=== PATIENT | female | born 1935 | race Hispanic/Latino ===

== ENCOUNTER 2018-12-10 11:15 | Inpatient (IN) | payer MEDICARE ==
[2018-12-10] MEDS ORDERED: Albuterol-Ipratrop 3 mg / 0.5 (3 ml) UD IH STA (11:35)
--- NOTE | 2018-12-10 11:46 | ED PDOC ---
Arrival/HPI - General Chief Complaint: Shortness Of Breath Time Seen by Provider: 12/10/18 11:16 Historian: Patient - History of Present Illness Narrative History of Present Illness (Text): 12/10/18 11:46 83 year old female, with past medical history of hypertension, chronic smoker, presents to the ED for evaluation of shortness of breath and non-productive cough since 2 weeks. Patient reports visiting Dr. Vargas with the presented symptoms and was subsequently referred to the ED for evaluation. dypnea with exertion. Patient denies any other associated somatic complaints. Patient denies any fevers, chills, headache, dizziness, chest pain, abdominal pain, nausea, vomiting, diarrhea, back pain, neck pain, or any other complaints. Patient admits to smoking cigarettes daily. PMD: Dr. Aleksandr Vargas 12/10/18 15:55 12/10/18 15:56 Time/Duration: > week Symptom Onset: Gradual Symptom Course: Unchanged Activities at Onset: Light Context: Home Past Medical History - Provider Review Nursing Documentation Reviewed: Yes - Infectious Disease Hx of Infectious Diseases: None - Reproductive Menopause: Yes - Cardiac Hx Hypertension: Yes - Pulmonary Hx Respiratory Disorders: No - Neurological Hx Neurological Disorder: No - HEENT Hx HEENT Disorder: No - Psychiatric Hx Substance Use: No - Anesthesia Hx Anesthesia: No Family/Social History - Physician Review Nursing Documentation Reviewed: Yes Family/Social History: No Known Family HX Smoking Status: Heavy Smoker > 10 Cigarettes Daily Hx Alcohol Use: No Hx Substance Use: No Allergies/Home Meds Allergies/Adverse Reactions: Allergies No Known Allergies Allergy (Verified 12/10/18 11:29) Home Medications: Home Meds Medication Instructions Recorded Confirmed Aspirin [Ecotrin] 81 mg PO DAILY 12/10/18 12/10/18 Atorvastatin [Lipitor] 40 mg PO DAILY 12/10/18 12/10/18 Carvedilol [Coreg] 12.5 mg PO DAILY 12/10/18 12/10/18 Clopidogrel [Plavix] 75 mg PO DAILY 12/10/18 12/10/18 Gabapentin [Neurontin] 300 mg PO 12/10/18 Meloxicam [Mobic] 15 mg PO DAILY 12/10/18 12/10/18 Telmisartan [Micardis] 80 mg PO DAILY 12/10/18 12/10/18 amLODIPine [Norvasc] 10 mg PO DAILY 12/10/18 12/10/18 Review of Systems - Physician Review All systems were reviewed & negative as marked: Yes - Review of Systems Constitutional: absent: Fevers Respiratory: SOB, Cough Cardiovascular: absent: Chest Pain, VARGAS Gastrointestinal: absent: Abdominal Pain, Diarrhea, Nausea, Vomiting Genitourinary Female: absent: Dysuria Musculoskeletal: absent: Back Pain, Neck Pain Skin: absent: Rash Neurological: absent: Headache, Dizziness Psychiatric: absent: Anxiety Physical Exam Vital Signs Reviewed: Yes Vital Signs Temp Pulse Resp BP Pulse Ox 12/10/18 11:24 98 F 78 20 133/74 92 L Temperature: Afebrile Blood Pressure: Normal Pulse: Regular Respiratory Rate: Normal Appearance: Positive for: Well-Appearing, Non-Toxic, Comfortable Pain Distress: None Mental Status: Positive for: Alert and Oriented X 3 - Systems Exam Head: Present: Atraumatic, Normocephalic Pupils: Present: PERRL Extroacular Muscles: Present: EOMI Conjunctiva: Present: Normal Mouth: Present: Moist Mucous Membranes Neck: Present: Normal Range of Motion Respiratory/Chest: Present: Wheezes (scatttered wheezing), Decreased Breath Sounds. No: Respiratory Distress, Accessory Muscle Use Cardiovascular: Present: Regular Rate and Rhythm, Normal S1, S2. No: Murmurs Abdomen: No: Tenderness, Distention, Peritoneal Signs Back: Present: Normal Inspection Upper Extremity: Present: Normal Inspection. No: Cyanosis, Edema Lower Extremity: Present: Normal Inspection. No: Edema Neurological: Present: GCS=15, CN II-XII Intact, Speech Normal Skin: Present: Warm, Dry, Normal Color. No: Rashes Psychiatric: Present: Alert, Oriented x 3, Normal Insight, Normal Concentration Medical Decision Making ED Course and Treatment: 12/10/18 11:34 Impression: 83 year old female presents to the ED for evaluation of shortness of breath and cough. ro pna chf pe copd. exam mild wheezing, fine rale at bases Plan: -- EKG -- Labs -- CXR -- Duoneb -- Solumedrol -- Influenza -- Urinalysis -- Reassess and disposition Prior Visits: Notes and results from previous visits were reviewed. Progress Notes: EKG reviewed, shows NSR @ 72 bpm, non-specific ST/T wave changes. Poor tracing secondary to artifacts. 12/10/18 14:38 CXR reviewed by radiologist, shows no active disease. CTA negative, shows no PE. 12/10/18 15:55 case discussed with pmd requests admission cards eval. - RAD Interpretation Radiology Orders: 12/10/18 11:34 CHEST PORTABLE [RAD] Stat - Medication Orders Current Medication Orders: Discontinued Medications Albuterol/Ipratropium (Duoneb 3 Mg/0.5 Mg (3 Ml) Ud) 3 ml IH STAT STA Stop: 12/10/18 11:36 Methylprednisolone (Solu-Medrol) 125 mg IVP STAT STA Stop: 12/10/18 11:36 - Scribe Statement The provider has reviewed the documentation as recorded by the Scribe Nick Ronquillo. All medical record entries made by the Scribe were at my direction and pers onally dictated by me. I have reviewed the chart and agree that the record accurately reflects my personal performance of the history, physical exam, medical decision making, and the department course for this patient. I have also personally directed, reviewed, and agree with the discharge instructions and disposition. Disposition/Present on Arrival - Present on Arrival Any Indicators Present on Arrival: No History of DVT/PE: No History of Uncontrolled Diabetes: No Urinary Catheter: No History of Decub. Ulcer: No History Surgical Site Infection Following: None - Disposition Have Diagnosis and Disposition been Completed?: Yes Diagnosis: CHF (congestive heart failure) Disposition: HOSPITALIZED Disposition Time: 15:00 Condition: STABLE
[2018-12-10 12:04] LABS: BASO # 0.02 K/mm3 (0.0-2.0); BASO % 0.3 % (0.0-3.0); EOS # 0.3 (0.0-0.7); EOS % 5.2 % (1.5-5.0); HEMOGLOBIN 14.5 g/dL (12.0-16.0); LYMPH % 33.4 % (22.0-35.0); MEAN CELL VOLUME 93.5 fl (80.0-105.0); MEAN CORPUSCULAR HEMOGLOBIN 31.2 pg (25.0-35.0); MEAN CORPUSCULAR HGB CONC 33.3 g/dl (31.0-37.0); MEAN PLATELET VOLUME 9.9 fl (7.0-11.0); MONO # 0.4 (0.1-0.6); MONO % 6.7 % (1.0-6.0); RBC 4.65 10^6/uL (3.5-6.1); RED CELL DISTRIBUTION WIDTH 12.8 % (11.5-14.5)
[2018-12-10 12:13] LABS: ALB/GLOB RATIO 1.4 (1.1-1.8); ALBUMIN 4.2 g/dL (3.0-4.8); ALT/SGPT 8 U/L (7-56); AST/SGOT 22 U/L (14-36); BLOOD UREA NITROGEN 26 mg/dL (7-21); CALCIUM 9.4 mg/dL (8.4-10.5); GFR NON-AFRICAN AMERICAN > 60; PARTIAL THROMBOPLASTIN TIME 30.7 Seconds (26.9-38.3); PROTHROMBIN TIME 11.3 SECONDS (9.4-12.5)
[2018-12-10 12:24] LABS: B-TYPE NATRIURETIC PEPTIDE 655 pg/mL (0-450); TROPONIN I < 0.01 ng/mL
[2018-12-10] MEDS ORDERED: Iohexol 350 MG/100 ML VIAL ONE (13:02)
[2018-12-10 13:03] LABS: PH,URINE 5.5 (4.7-8.0); URINE BILIRUBIN NEGATIVE (NEGATIVE); URINE BLOOD NEGATIVE (NEGATIVE); URINE GLUCOSE (UA) NEGATIVE (NEGATIVE); URINE LEUKOCYTE ESTERASE NEGATIVE Leu/uL (NEGATIVE); URINE PROTEIN NEGATIVE mg/dL (<30 mg/dL); URINE UROBILINOGEN 0.2 E.U./dL (<1 E.U./dL)
[2018-12-10 13:04] LABS: URINE APPEARANCE CLEAR (CLEAR); URINE COLOR YELLOW (YELLOW)
--- NOTE | 2018-12-10 14:11 | CT ---
Date of service: 12/10/2018 PROCEDURE: CT Chest with contrast (Pulmonary Angiogram) HISTORY: sob elevated dimer COMPARISON: None available. TECHNIQUE: Axial computed tomography images were obtained of the chest in the pulmonary arterial phase of enhancement. Coronal and sagittal reformatted images were created and reviewed. Intravenous contrast dose: 100 cc of Omni 350 Radiation dose: Total exam DLP = 265.94 mGy-cm. This CT exam was performed using one or more of the following dose reduction techniques: Automated exposure control, adjustment of the mA and/or kV according to patient size, and/or use of iterative reconstruction technique. FINDINGS: PULMONARY ARTERIES: Unremarkable. No pulmonary embolism. AORTA: No acute findings. No thoracic aortic aneurysm. Aortic and coronary artery calcification LUNGS: Unremarkable. No nodule, mass or pulmonary consolidation. PLEURAL SPACES: Unremarkable. No effusion or pneumothorax. HEART: Unremarkable. No cardiomegaly. No significant pericardial effusion. LYMPH NODES: No lymphadenopathy. BONES, CHEST WALL: Scoliosis. No vertebral compression fractures OTHER FINDINGS: Unremarkable. IMPRESSION: Unremarkable CT pulmonary angiogram. No pulmonary embolus.
--- NOTE | 2018-12-10 14:33 | RAD ---
Date of service: 12/10/2018 HISTORY: sob COMPARISON: No prior. FINDINGS: LUNGS: No active pulmonary disease. PLEURA: No significant pleural effusion identified, no pneumothorax apparent. CARDIOVASCULAR: No aortic atherosclerotic calcification present. Normal cardiac size. No pulmonary vascular congestion. OSSEOUS STRUCTURES: No significant abnormalities. VISUALIZED UPPER ABDOMEN: Normal. OTHER FINDINGS: None. IMPRESSION: No active disease.
--- NOTE | 2018-12-10 15:04 | CARD ---
APPROVED REPORT Date of service: 12/10/2018 EKG Measurement Heart [id number] 190P [id number] <Conclusion> Normal sinus rhythm Septal infarct, age undetermined Inferior infarct, age undetermined ST & T wave abnormality, consider lateral ischemia Abnormal ECG
[2018-12-10] MEDS ORDERED: Enoxaparin 40 mg Syringe SC STA (18:43)
[2018-12-10] MEDS ORDERED: Levalbuterol 0.63 MG/3 ML Inhal Soln UD IH PRN (18:44)
[2018-12-10 20:26] LABS: TROPONIN I < 0.01 ng/mL
--- NOTE | 2018-12-10 21:38 | CON ---
DATE: 12/10/2018 CARDIOLOGY CONSULTATION REASON FOR CONSULTATION: Shortness of breath, cardiac evaluation, history of multiple stent by Dr. Silvestre. BRIEF CLINICAL HISTORY: This is an 83-year-old female with past medical history significant for hypertension, active smoker, history of COPD, came in today with shortness of breath and 2 weeks history of cough and progressive worsening shortness of breath while walking from bedroom to bathroom gets short of breath. Patient went this morning to Dr. Vargas, was found to have murmur and suggested to come to the ER. Patient was sitting in the ER, though patient saw many years ago Dr. Silvestre and consult was with Dr. Silvestre, but the patient is Dr. Veras's [id number] and doctor's and Dr. Veras called me to see the patient. Patient denies any chest pain. Patient's daughter, Dr. Veras's is at the bedside as well as the son is at the bedside. PAST MEDICAL HISTORY: Significant for coronary artery disease, hypertension, hyperlipidemia as well as arthritis. SOCIAL HISTORY: Active tobacco abuse half pack a day, history of back pain, history of arthritis, history of coronary artery disease, history of stent many years ago. One was done in [facility] by Dr. Silvestre and one at the [facility] many years ago. CURRENT MEDICATIONS: Amlodipine 10 mg daily, Micardis 80 mg daily, meloxicam 15 mg daily, Plavix 75 mg daily, Coreg 12.5 mg daily, atorvastatin 40 mg daily, and aspirin 81 mg daily. ALLERGIES: NO KNOWN DRUG ALLERGIES. REVIEW OF SYSTEMS: As per HPI. PHYSICAL EXAMINATION: VITAL SIGNS: Height of the patient 5 feet 3 inches, weight of patient 143 pounds, body mass index 25.3 kg/m2. Temperature afebrile, heart rate 72, and blood pressure 134/69. HEENT: PERRLA. Extraocular muscles intact. NECK: Supple. No carotid bruits or thyromegaly CHEST: Clear to auscultation. HEART: S1 and S2 regular. ABDOMEN: Soft. EXTREMITIES: Clubbing and cyanosis, negative. LABORATORY DATA: Blood work as follows; WBC 6, hemoglobin 14.2, hematocrit 43.5, and platelet count 175. Chemistry shows sodium 130, potassium 4.0, chloride 106, carbon dioxide 26, anion gap of 10, BUN 26, creatinine 0.6. Troponin is 0.01 negative. EKG showed normal sinus, inferior wall CO of undetermined age, ST-T changes. CAT scan of the chest done is unremarkable. CT pulmonary angiogram, no pulmonary embolus. IMPRESSION: An 83-year-old female with past medical history of arthritis, hypertension, hyperlipidemia, history of coronary artery disease status post 4 stents, admitted with progressive shortness of breath, 2 weeks history of progressively worsening shortness of breath with cough. Patient had coronary artery with loud murmur possibly aortic stenosis of unknown severity possibly moderate. RECOMMENDATIONS: We will get echo to access severity of aortic stenosis. We will get DVT prophylaxis. Troponin has been flat. We will do stress test because the patient had a pulmonary angiogram today. We will avoid cath at least for 24 hours if needed we could do 48 hours time. Though the patient was seen in the past Dr. Silvestre, but patient's family Dr. Veras and Dr. Gonzales's is the daughter of the patient wanted me to see, so I will see the patient. I will discuss case tomorrow with Dr. Silvestre. If he wants to continue, we talk to him I will continue. Brittany Reeder MD
[2018-12-11 03:36] VITALS: BMI 25.3
[2018-12-11 07:20] LABS: BASO # 0.01 K/mm3 (0.0-2.0); BASO % 0.2 % (0.0-3.0); HEMOGLOBIN 14.4 g/dL (12.0-16.0); LYMPH # 1.4 (1.2-3.4); LYMPH % 21.5 % (22.0-35.0); MEAN CORPUSCULAR HEMOGLOBIN 30.7 pg (25.0-35.0); MEAN PLATELET VOLUME 10.1 fl (7.0-11.0); MONO # 0.4 (0.1-0.6); MONO % 5.7 % (1.0-6.0); RBC 4.69 10^6/uL (3.5-6.1); RED CELL DISTRIBUTION WIDTH 12.7 % (11.5-14.5); WHITE BLOOD COUNT 6.7 10^3/uL (4.5-11.0)
[2018-12-11] MEDS: Budesonide 0.5 mg/2 ml Inhal Susp UD IH SCH ×2 (07:21→19:23)
[2018-12-11] MEDS: Arformoterol 15 mcg/2 ml Inh Sol IH SCH ×2 (07:21→19:22)
--- NOTE | 2018-12-11 07:36 | CP.PCM.PN ---
Subjective - Date & Time of Evaluation Date of Evaluation: 12/11/18 Time of Evaluation: 06:45 - Subjective Subjective: Awake, alert,no distress Reason for consultation and follow up: Cardiac evaluation of shortness of breath, history of coronary artery disease with stents Seen and examined by me and Dr. Reeder Objective - Vital Signs/Intake and Output Vital Signs (last 24 hours): Temp Pulse Resp BP Pulse Ox 98.7 F 52 L 19 102/57 L 96 12/11/18 00:01 12/11/18 02:00 12/11/18 00:01 12/11/18 00:01 12/11/18 00:01 Intake and Output: 12/11/18 12/11/18 06:59 18:59 Intake Total 0 Balance 0 - Medications Medications: Current Medications Acetaminophen (Tylenol 325mg Tab) 650 mg PO Q6H PRN PRN Reason: Fever >100.4 F Amlodipine Besylate (Norvasc) 10 mg PO DAILY [facility] Arformoterol Tartrate (Brovana) 15 mcg IH [id number] [facility] Last Admin: 12/11/18 07:21 Dose: 15 mcg Atorvastatin Calcium (Lipitor) 40 mg PO DIN [facility] Last Admin: 12/10/18 18:47 Dose: Not Given Budesonide (Pulmicort Respules) 0.5 mg IH [id number] [facility] Last Admin: 12/11/18 07:21 Dose: 0.5 mg Carvedilol (Coreg) 12.5 mg PO BID [facility] Last Admin: 12/10/18 18:47 Dose: Not Given Clopidogrel Bisulfate (Plavix) 75 mg PO Q24H [facility] Last Admin: 12/10/18 15:27 Dose: Not Given Docusate Sodium (Colace) 100 mg PO BID [facility] Last Admin: 12/10/18 18:47 Dose: Not Given Levalbuterol HCl (Xopenex) 0.63 mg IH [id number] PRN PRN Reason: Shortness of Breath Last Admin: 12/11/18 07:21 Dose: 0.63 mg - Labs Labs: 12/10/18 11:55 12/10/18 11:55 PT 11.3 SECONDS (9.4-12.5) 12/10/18 11:55 INR 1.00 12/10/18 11:55 APTT 30.7 Seconds (26.9-38.3) 12/10/18 11:55 - Constitutional Appears: Non-toxic, No Acute Distress - Head Exam Head Exam: NORMAL INSPECTION, NORMOCEPHALIC - Eye Exam Eye Exam: Normal appearance Pupil Exam: NORMAL ACCOMODATION - ENT Exam ENT Exam: Mucous Membranes Moist, Normal Exam - Respiratory Exam Respiratory Exam: Clear to Ausculation Bilateral, NORMAL BREATHING PATTERN - Cardiovascular Exam Cardiovascular Exam: Bradycardia, +S1, +S2 Additional comments: Telemetry SB 50's - GI/Abdominal Exam GI & Abdominal Exam: Soft, Normal Bowel Sounds - Extremities Exam Extremities Exam: Full ROM, Normal Capillary Refill - Neurological Exam Neurological Exam: Alert, Awake, Oriented x3 - Psychiatric Exam Psychiatric exam: Normal Affect, Normal Mood - Skin Skin Exam: Dry, Normal Color, Warm Assessment and Plan - Assessment and Plan (Free Text) Assessment: An 83 year old female who came in to the ER due to shortness of breath and 2 week history of coughing. She was seen by Dr. Vargas and sent to the ER. History of coronary artery disease with [place] [place] [facility] hypertension, COPD, hypertension, hyperlipidemia, arthritis, Current smoker half pack a day.Troponin normal. Chest CT unremarkable. For echo to evaluate valve function and LV function. For stress test today. Denies shortness of breath now. Vital sign stable. Plan: No distress, denies shortness of breath For Echo today For Stress test today Continue current treatment On Norvasc 10 mg daily,Lipitor 40 mg daily,Coreg 12.5 mg BID Plavix 75 mg daily Continue current medications Further recommendations after echo and stress test Will follow up Plan and treatment discussed with Dr. Reeder
[2018-12-11 07:43] LABS: TROPONIN I < 0.01 ng/mL
[2018-12-11 07:57] LABS: ALB/GLOB RATIO 1.4 (1.1-1.8); ALBUMIN 4.2 g/dL (3.0-4.8); ALT/SGPT < 6 U/L (7-56); AST/SGOT 22 U/L (14-36); BLOOD UREA NITROGEN 30 mg/dL (7-21); CALCIUM 9.6 mg/dL (8.4-10.5); GFR NON-AFRICAN AMERICAN 53; HDL CHOLESTEROL 71 mg/dL (29-60)
[2018-12-11 07:58] LABS: LDL CHOLESTEROL 84 mg/dL (0-129)
[2018-12-11] MEDS ORDERED: Aminophylline 25 mg/ml Inj ONE (08:06)
[2018-12-11 08:35] VITALS: O2SAT 98
--- NOTE | 2018-12-11 12:25 | CARD ---
APPROVED REPORT Date of service: 12/11/2018 EXAM: Two-dimensional and M-mode echocardiogram with Doppler and color Doppler. INDICATION Chest Pain 2D DIMENSIONS IVSd1.3 (0.7-1.1cm)LVDd5.2 (3.9-5.9cm) LVOT Diameter1.8 (1.8-2.4cm)PWd1.3 (0.7-1.1cm) LVDs3.6 (2.5-4.0cm)FS (%) 30.5 % LVEF (%)57.6 (>50%) M-Mode DIMENSIONS Aortic Root3.80 (2.2-3.7cm)Aortic Cusp Exc.0.60 (1.5-2.0cm) Aortic Valve AoV Peak Msgnizah740.0cm/sAoV VTI73.7cmAO Peak GR.41mmHg LVOT Peak Zjsqndyc17.0cm/sLVOT VTI19.60cmAO Mean GR.22mmHg HARDIK (VMAX)0.86gr0CJE (VTI)0.61zh2PI P 1/2 Meyi825gu Mitral Valve MV E Hgklycuw71.8cm/sMV A Phovskld963.0cm/sE/A ratio0.5 TDI Lateral E' Peak V3.90cm/sMedial E' Peak V3.61cm/sE/Lateral E'14.8 E/Medial E'16.0 Pulmonary Valve PV Peak Qefhfkor70.1cm/sPV Peak Grad.2mmHg Tricuspid Valve TR Peak Kpmeqbmc837av/sRAP MIBGGKYK40glOpLD Peak Gr.16mmHg [id number] LEFT VENTRICLE The left ventricle is normal size. There is mild concentric left ventricular hypertrophy. Proximal septal thickening is noted. The left ventricular function is normal.EF-55-60% There is normal LV segmental wall motion. Transmitral Doppler flow pattern is Grade III-reversible restrictive diastolic dysfunction. No left ventricle thrombus noted on this study. There is no ventricular septal defect visualized. There is no left ventricular aneurysm. There is no mass noted in the left ventricle. RIGHT VENTRICLE The right ventricle is normal size. There is normal right ventricular wall thickness. The right ventricular systolic function is normal. ATRIA The left atrium is mildly dilated. The right atrium size is normal. The interatrial septum is intact with no evidence for an atrial septal defect. AORTIC VALVE The aortic valve is calcified and displays decreased opening. There is trace to mild aortic regurgitation. There is moderate to severe valvular aortic stenosis. There is no aortic valvular vegetation. MITRAL VALVE The mitral valve is thickened but opens well. Mitral regurgitation is mild. There is no mitral valve stenosis. There is no evidence of mitral valve prolapse. TRICUSPID VALVE The tricuspid valve leaflets are thickened , but open well. There is trace to mild tricuspid regurgitation.RVSP-26 mmof hg. There is no tricuspid valve stenosis. There is no tricuspid valve prolapse or vegetation. PULMONIC VALVE The pulmonary valve is normal in structure. There is no pulmonic valvular regurgitation. There is no pulmonic valvular stenosis. GREAT VESSELS The aortic root is normal in size. The ascending aorta is normal in size. The pulmonary artery is normal. The IVC is normal in size and collapses >50% with inspiration. PERICARDIAL EFFUSION There is no pleural effusion. There is no pericardial effusion. <Conclusion> The left ventricle is normal size. There is mild concentric left ventricular hypertrophy. Proximal septal thickening is noted. The left ventricular function is normal.EF-55-60% The aortic valve is calcified and displays decreased opening. There is moderate to severe valvular aortic stenosis. There is trace to mild aortic regurgitation. Mitral regurgitation is mild. There is trace to mild tricuspid regurgitation.RVSP-26 mmof hg. The IVC is normal in size and collapses >50% with inspiration. There is no pericardial effusion.
--- NOTE | 2018-12-11 12:36 | CON ---
DATE: 12/11/2018 PULMONARY CONSULTATION REASON FOR PULMONARY CONSULTATION: Chronic obstructive pulmonary disease. REFERRING PHYSICIAN: Dr. Aleksandr Vargas. HISTORY OF PRESENT ILLNESS: The patient is an 83-year-old female, with past medical history significant for chronic obstructive pulmonary disease, positive extensive smoking history - still smokes, coronary artery disease, status post multiple cardiac stents, who presents to [facility] with main complaint of shortness of breath with exertion for the past 2 weeks. The patient is not short of breath at rest. The patient does state to a minimal cough with no significant sputum production. There is no history of chest pain, coughing up of blood, or chest pain - brought on with deep respirations. There is no history of temperatures, chills, or infectious exposure. There is no history of night sweats, weight loss, or appetite change prior to the above events. No history of calf pains. No history of syncope or diaphoresis. No history of recent travel or trauma. REVIEW OF SYSTEMS: No history of nausea, vomiting, or diarrhea. No acute urinary symptoms. No new neurologic complaints. Rest of the review of systems is negative. ALLERGIES: NO KNOWN ALLERGIES. SOCIAL HISTORY: Positive for extensive tobacco usage - still smokes, no alcohol. FAMILY HISTORY: No inheritable diseases. MEDICATIONS: Home medications include Mobic, Coreg, Ecotrin, Norvasc, Micardis, Plavix, Lipitor, Neurontin. PHYSICAL EXAMINATION: GENERAL: The patient appears comfortable at rest. She is not short of breath. She is not using accessory muscles for breathing. VITALS: (Last noted in the computer): Temperature is 98.7, pulse 52, respirations 19, blood pressure 102/57. Oxygen saturation on nasal cannula is 96%. HEENT: Normocephalic, atraumatic. No JVD. CARDIOVASCULAR: Systolic ejection murmur at the lower left sternal border. No S3 gallop. LUNGS: Decreased breath sounds at the bases. Minimal rhonchi. No wheezing. EXTREMITIES: Mild edema. No cyanosis, no clubbing. Calves are nontender to palpation. GI: Abdomen is soft, nontender, and nondistended. Bowel sounds are positive. SKIN: No acute rash. NEUROLOGIC: Exam limited at the present time. PERTINENT LABORATORY DATA: CAT scan of the chest was done as an angiogram protocol. There is no pulmonary embolism seen. There is no nodule, mass, or pulmonary consolidation seen. CBC: White count 6.0K, hemoglobin 14.5, hematocrit 43.5, platelets of 175,000. Complete Metabolic Profile: BUN 26, glucose 113. B-type natriuretic peptide 655. Rest of the metabolic profile is within normal limits. IMPRESSION: 1. Dyspnea on exertion. 2. Chronic obstructive pulmonary disease. 3. Mild bronchitis. 4. Extensive coronary artery disease. PLAN: The patient presents to [facility] with main complaint of shortness of breath with exertion for the past 2 weeks. The patient also states to a minimal cough with no significant sputum production. She offers no other pulmonary symptoms. I did review the CAT scan of the chest. Findings are noted above. There are no acute abnormalities seen. On physical exam, there is mild bronchospasm noted. However, there is no significant alveolar-arterial gradient. I will start the patient on Brovana nebulizer treatments and inhaled steroids. She does have an extensive smoking history, and continues to smoke. When the patient is past this acute illness, we should proceed with pulmonary function testing. The patient was also seen by Dr. Reeder (Cardiology). Echocardiogram and stress testing are ordered. The patient does state to feeling better this morning and is clinically improved. Additional pulmonary intervention will be based on the clinical status of the patient. I will discuss the above with Dr. Vargas this morning. Thank you very much for this pulmonary consultation. Vaughn Almodovar MD [facility]
--- NOTE | 2018-12-11 19:06 | HP ---
DATE OF EXAM: 12/11/2018 HISTORY OF PRESENT ILLNESS: The patient is an 83-year-old female, admitted through the emergency department on 12/10/2018, with increasing dyspnea on minimal exertion over the past week. The patient has a history of coronary artery disease status post multiple stent placements. She was admitted to the Telemetry Unit for further evaluation and management. In the emergency department, she received nebulizer treatments as well as a doses of IV steroids with some improvement. She denies any chest pain. No nausea, no vomiting, no diaphoresis. No melena, no bright red blood per rectum, no jaundice, no diarrhea. No fever, no chills. No cough. PAST MEDICAL HISTORY: Includes coronary artery disease status post multiple stent placements. 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 PAST SURGICAL HISTORY: Includes cholecystectomy in the remote past. ALLERGIES: THE PATIENT HAS NO KNOWN DRUG ALLERGIES. CURRENT MEDICATIONS: Include carvedilol 12.5 mg twice daily, Lipitor 40 mg daily, amlodipine 10 mg daily, Micardis 80 mg daily, Plavix 75 mg daily, meloxicam 15 mg daily, and gabapentin 300 mg daily. FAMILY HISTORY: Noncontributory. SOCIAL HISTORY The patient has a history of one pack per day tobacco use for greater than 50 years. There is no history of alcohol use. The patient is independent with ADLs and IADLs. REVIEW OF SYSTEMS: Essentially as above. PHYSICAL EXAMINATION: GENERAL: The patient is a well-developed, mildly obese female in no acute distress. VITAL SIGNS: Blood pressure 119/68, temperature 98.4, pulse 67, and respiratory rate 19. HEENT: Head is normocephalic and atraumatic. Pupils equal, round, and reactive to light. Extraocular movements intact. NECK: Supple with no thyromegaly. No carotid bruit. No adenopathy. No JVD. LUNGS: Clear. HEART: Regular rate and rhythm with a grade 3/6 systolic murmur. ABDOMEN: Soft, nontender, mildly obese. Bowel sounds are normoactive. EXTREMITIES: Without cyanosis, clubbing or edema. NEUROLOGIC: The patient is awake and oriented x3 without focal sensory or motor deficits. SKIN: Warm and dry. LABORATORY DATA: WBC 6.7, hemoglobin 14.4, and hematocrit 43.6. Sodium 138, potassium 4.4, chloride 103, CO2 of 29, BUN 30, creatinine 1.0, and glucose is 124. Troponin is less than 0.01 x3. BNP is slightly elevated at 655. TSH slightly low at 0.17. CT angio was negative for pulmonary embolus. Chest x-ray showed no active disease. IMPRESSION: 1. Coronary artery disease, rule out myocardial ischemia. 2. Rule out valvular heart disease/aortic stenosis. 3. Possible mild congestive heart failure/hypertension and hypertensive cardiovascular disease. 4. Chronic obstructive pulmonary disease secondary to tobacco. 5. Hypercholesterolemia. 6. Degenerative joint disease. 7. Rule out hyperthyroidism. PLAN The patient is admitted to the Telemetry Unit. We will obtain Cardiology consultation, Dr. Cb Silvestre. Pulmonary consultation, Dr. Vaughn Almodovar. The patient is scheduled for stress test and echocardiogram today. We will hold Micardis if his blood pressure is normal on the present regimen of carvedilol and amlodipine. KATTY Goddard MD
--- NOTE | 2018-12-11 21:39 | CARD ---
APPROVED REPORT Date of service: 12/11/2018 Protocol: LEXISCAN Test Type: Lexiscan Sestamibi Stress Test Attending Physician: Dr. Brittany Reeder Referring Physician: Dr. Aleksandr Vargas Test Indications: Chest Pain Height:5 ft 3 in Weight:143lbs Medications: TYlenol, Norvasc, Lipitor, Coreg, Plavix Colace, Xopenex Medical History: 83 year old fgemale with a history ofm HTN, high cholesterol, TIA PTCA with stent p[lacement x 5, Target HR: 136 bpm Resting ECG: NSR, Poor RRR progression, IWMI of UA Resting Heart Rate: 56 bpm Resting Blood Pressure: 140/80mmHg Submaximum (85%): 116 bpm PROCEDURE Pharmacologic stress testing was performed using 0.4mg per 5ml of regadenoson given intravenously over 7-10 seconds. Reversal agent aminophyline 100 mg, given intravenously for Dyspnea. POST EXERCISE Reason for Termination: Protocol completed Target HR: No Max HR: 59 bpm 62% of Maximum Predicted HR: 136 bpm Exercise duration: 00:15 min:sec, 0 Stage Exercise capacity: 1.0METs Max Blood Pressure: 140/80mmHg Blood Pressure response to exercise: normal resting BP - appropriate response Heart Rate response to exercise: appropriate Chest Pain: No, none Angina index: 0 Arrhythmia: No, none ST Change: Yes, from base line Deviation: 0 mm TEST SUMMARY [id number]. INFUSIONDOSE [id number]. [id number]. INTERPRETATION Stress EKG Conclusion: Non diagnostic IV lexiscan b/c of base line abnormal ECG, but no complain of chest pain, Nuclear scan to follow. Signed by Brittany Reeder Electronically Approved: 12/11/2018 10:09:51 EXAM: Myocardial Perfusion REST/STRESS Stress Test Type: Pharmacologic Imaging Protocol The imaging protocol used to acquire images was Rest Tc-99m/stress Tc-99m 1 day Rest Spect myocardial perfusion imaging was performed in supine position 45 minutes following the injection of 10.3 mCi of Tc-99 Myoview. At peak stress, the patient was injected intravenously with 30.2mCi of Tc-99 tetrofosmin after an infusion time of 0 minutes and 10 seconds. Gated Stress Spect was performed 65 minutes after intravenous Tc-99 Myoview injection. The images were gated to evaluate regional wall motion and calculate ventricular ejection fraction.Images were reconstructed using backfilter projection method in short horizontal and verticle long axis. Spect slices were generated. LV Perfusion The quality of the study is good. The left ventricle is normal in size. The right ventricle is unremarkable. The lung uptake is within normal limits. The distribution of tracer reveals an area of moderately to severely decreased perfusion involvng most of the anerior and mid to basal anterolateral freeman on the stress studyy. The remainder of the LV myocardium is unremarkable. The rest myocardial perfusion study shows improvement of the defects. Wall Motion Wall motion study shows normal contractility of the left ventricle. LVEF = 53%. Conclusion 1. Abnormal SPECT myocardial perfusion study. 2. Partially reverislble, anterior and anterolateral defects are suggesive of ischemia. 3. Normal gated wall motion of the left ventricle.
[2018-12-12] MEDS: Budesonide 0.5 mg/2 ml Inhal Susp UD IH SCH ×2 (07:16→21:53)
[2018-12-12] MEDS: Arformoterol 15 mcg/2 ml Inh Sol IH SCH ×2 (07:16→21:53)
--- NOTE | 2018-12-12 08:33 | PN ---
DATE: 12/12/2018 PULMONARY NOTE SUBJECTIVE: The patient appears quite comfortable this morning. She is not short of breath at rest. PHYSICAL EXAMINATION: VITAL SIGNS: Temperature is 98.4, pulse 62, respirations 18, blood pressure 130/63. Oxygen saturation last measured on nasal cannula - 98%. HEENT: Normocephalic, atraumatic. No JVD. CARDIOVASCULAR: Systolic ejection murmur at the lower left sternal border. No S3 gallop. LUNGS: Improved breath sounds at the bases. Very minimal/less rhonchi. No wheezing. GI: Abdomen is soft, nontender and nondistended. Bowel sounds are positive. EXTREMITIES: Mild edema. No cyanosis, no clubbing. Calves are nontender to palpation. SKIN: No acute rash. NEUROLOGIC: Exam limited at the present time. IMPRESSION: 1. Dyspnea on exertion. 2. Chronic obstructive pulmonary disease. 3. Mild bronchitis. 4. Extensive coronary artery disease. PLAN: The patient appears quite comfortable this morning. She is not short of breath at rest. She does state to feeling much better overall. On physical exam, there is certainly less bronchospasm noted. In addition, there is no significant alveolar-arterial gradient. I will continue the current nebulizer treatments and inhaled steroids for now. Input by Cardiology is also noted. I did discuss case with Dr. Reeder yesterday. The patient today did have a myocardial stress test yesterday. It was noted to be abnormal. Additional decision making will be as per Dr. Reeder. Clinical status of the patient has certainly improved - compared to the initial presentation. However, given the above, the future status/prognosis for this patient does remain guarded. I will discuss the above with the attending physician. Vaughn Almodovar MD MTDS[facility]
[2018-12-12] MEDS ORDERED: Aspirin 325 mg EC Tablets PO STA (08:47)
--- NOTE | 2018-12-12 09:20 | CP.PCM.PN ---
Subjective - Date & Time of Evaluation Date of Evaluation: 12/12/18 Time of Evaluation: 09:00 - Subjective Subjective: OOB ambulating, denies chest pain, no SOB Objective - Vital Signs/Intake and Output Vital Signs (last 24 hours): Temp Pulse Resp BP Pulse Ox 98.4 F 62 20 130/63 98 12/12/18 06:00 12/12/18 06:00 12/12/18 06:00 12/12/18 06:00 12/11/18 06:00 Intake and Output: 12/12/18 12/12/18 06:59 18:59 Intake Total 900 Balance 900 - Medications Medications: Current Medications Acetaminophen (Tylenol 325mg Tab) 650 mg PO Q6H PRN PRN Reason: Fever >100.4 F Amlodipine Besylate (Norvasc) 10 mg PO DAILY [facility] Last Admin: 12/11/18 11:53 Dose: 10 mg Arformoterol Tartrate (Brovana) 15 mcg IH [id number] [facility] Last Admin: 12/12/18 07:16 Dose: 15 mcg Aspirin (Aspirin Chewable) 81 mg PO DAILY [facility] Atorvastatin Calcium (Lipitor) 40 mg PO DIN [facility] Last Admin: 12/11/18 17:20 Dose: 40 mg Budesonide (Pulmicort Respules) 0.5 mg IH [id number] [facility] Last Admin: 12/12/18 07:16 Dose: 0.5 mg Carvedilol (Coreg) 12.5 mg PO BID [facility] Last Admin: 12/11/18 17:24 Dose: 12.5 mg Clopidogrel Bisulfate (Plavix) 75 mg PO Q24H [facility] Last Admin: 12/11/18 15:00 Dose: 75 mg Docusate Sodium (Colace) 100 mg PO BID [facility] Last Admin: 12/11/18 17:20 Dose: 100 mg Levalbuterol HCl (Xopenex) 0.63 mg IH [id number] PRN PRN Reason: Shortness of Breath Last Admin: 12/11/18 07:21 Dose: 0.63 mg - Labs Labs: 12/11/18 07:00 12/11/18 07:00 PT 11.3 SECONDS (9.4-12.5) 12/10/18 11:55 INR 1.00 12/10/18 11:55 APTT 30.7 Seconds (26.9-38.3) 12/10/18 11:55 - Respiratory Exam Respiratory Exam: Clear to Ausculation Bilateral, NORMAL BREATHING PATTERN - Cardiovascular Exam Cardiovascular Exam: REGULAR RHYTHM - GI/Abdominal Exam GI & Abdominal Exam: Soft, Normal Bowel Sounds - Extremities Exam Extremities Exam: Normal Inspection - Neurological Exam Neurological Exam: Alert, Awake Assessment and Plan (1) Coronary artery disease Status: Acute (2) CHF (congestive heart failure) Status: Acute (3) Aortic stenosis Status: Chronic (4) COPD (chronic obstructive pulmonary disease) Status: Chronic - Assessment and Plan (Free Text) Plan: for cath in am
--- NOTE | 2018-12-12 11:39 | PN ---
DATE: 12/12/2018 REASON FOR CONSULTATION: History of coronary artery disease, admitted with the shortness of breath, abnormal stress test, and moderate to severe aortic stenosis. SUBJECTIVE: The patient denies any chest pain, shortness of breath, or any palpitation. OBJECTIVE: Examination as follows; GENERAL: Not in apparent distress. VITAL SIGNS: Temperature afebrile, heart rate 62, and blood pressure 130/63. HEENT: PERRLA. Extraocular muscles intact. NECK: Supple. No carotid bruit or thyromegaly. CHEST: Clear to auscultation. HEART: S1 and S2 regular. ABDOMEN: Soft. EXTREMITIES: Clubbing and cyanosis, negative. LABORATORY DATA: WBC 6.6, hemoglobin 14.4, hematocrit 43.6, and platelet count 201. Chemistry shows sodium 130, potassium 4.4, chloride 106, carbon 29, anion gap of 11, BUN 33, and creatinine 1.0. Troponin is 0.01, negative. TSH is 0.17. Total protein 7.4, albumin 2.4, albumin-globulin ratio 1.4. Triglycerides 83, cholesterol 181, LDL 84, and HDL 71. Stress test showed abnormal myocardial perfusion study; partially reversible anterior defect, suggestive of ischemia. Ejection fraction of 53%. The patient had an echocardiography done yesterday that revealed ejection fraction 55% to 60%, calcified aortic valve displays decreased opening, moderate to severe valvular aortic stenosis, trace to mild aortic regurgitation, mild mitral regurgitation, trace to mild tricuspid regurgitation, and LV systolic pressure 26. IMPRESSION: An 83-year-old female with past medical history significant for coronary artery disease, status post multiple stents in the past, admitted with the shortness of breath. So far no evidence of acute myocardial infarction, but status post abnormal anterolateral ischemia, moderate to severe aortic stenosis, history of chronic obstructive pulmonary disease, and active tobacco abuse. RECOMMENDATIONS: Cardiac catheterization, load aspirin and Plavix. The patient is already on Plavix, we will continue Plavix. We will start 325 mg of aspirin stat and then 81 mg from tomorrow; keep n.p.o. after 12 midnight for cardiac catheterization. Discussed with the patient, discussed with the patient's daughter, Yaquelin who is the of Dr. Veras, agreed. We will proceed for cardiac catheterization. Further recommendation after cardiac catheterization. We will do the major right heart as well and calculate the valve areas. We will keep n.p.o. after 12 midnight for cardiac catheterization as mentioned. We will repeat the blood workup in the morning. Cholesterol profile as follows; total cholesterol 181, LDL 84, HDL 71, triglycerides 83. Hemoglobin A1c is 6 and TSH 0.17. Discussed with Dr. Silvestre. I will continue the care, he agreed. Thank you Dr. Vargas for providing us the opportunity in taking care of the patient, Matilde Leyva. Brittany Reeder MD cc: Dr. Aleksandr Vargas
--- NOTE | 2018-12-12 11:52 | US ---
PROCEDURE: Bilateral carotid artery duplex ultrasound HISTORY: Carotid stenosis carotid bruit PHYSICIAN(S): Cb Gar MD. TECHNIQUE: Duplex sonography and color-flow Doppler were used to evaluate the carotid bifurcations and limited segments of the vertebral arteries bilaterally. FINDINGS: The exam is limited by shadowing plaque at the IC origins and tortuous vessels There is moderate smooth heterogeneous shadowing plaque noted at the carotid bifurcations bilaterally. The peak systolic velocity in the proximal right internal carotid artery is 99 cm/sec. This corresponds to a 20 to 39% proximal right ICA stenosis. Normal systolic velocities are noted in the proximal right external carotid artery. There is antegrade flow in the right vertebral artery. The peak systolic velocity in the proximal left internal carotid artery is 64 cm/sec. This corresponds to a 20 to 39% proximal left ICA stenosis. Normal systolic velocities are noted in the proximal left external carotid artery. There is antegrade flow in the left vertebral artery. IMPRESSION: 1. Bilateral 20-39% proximal ICA stenoses. The origins of the internal carotid arteries are obscured by shadowing plaque 2. Antegrade flow in both vertebral arteries.
[2018-12-13 06:58] LABS: BASO # 0.02 K/mm3 (0.0-2.0); BASO % 0.3 % (0.0-3.0); EOS # 0.3 (0.0-0.7); EOS % 5.1 % (1.5-5.0); HEMOGLOBIN 13.9 g/dL (12.0-16.0); LYMPH # 2.1 (1.2-3.4); LYMPH % 35.5 % (22.0-35.0); MEAN CELL VOLUME 94.9 fl (80.0-105.0); MEAN CORPUSCULAR HEMOGLOBIN 30.6 pg (25.0-35.0); MEAN CORPUSCULAR HGB CONC 32.3 g/dl (31.0-37.0); MONO # 0.3 (0.1-0.6); MONO % 5.7 % (1.0-6.0); RBC 4.54 10^6/uL (3.5-6.1); RED CELL DISTRIBUTION WIDTH 12.8 % (11.5-14.5); WHITE BLOOD COUNT 5.9 10^3/uL (4.5-11.0)
[2018-12-13] MEDS ORDERED: Lidocaine 2% Inj (20ml) ONE (07:18)
[2018-12-13] MEDS ORDERED: Iodixanol 320 MG/ML 200 ML BOTTLE IV ONE (07:18)
[2018-12-13] MEDS ORDERED: Iohexol 350mgl/ml 50 ML ONE (07:18)
[2018-12-13] MEDS ORDERED: Iodixanol 320 MG/ML 100 ML BOTTLE IV ONE (07:18)
[2018-12-13] MEDS ORDERED: Nitroglycerin 50mg in D5W 0 MG/0 ML BOTTLE IV ONE (07:19)
[2018-12-13] MEDS ORDERED: Heparin 2,000 ML IV ONE (07:19)
[2018-12-13] MEDS ORDERED: Midazolam 2 MG/2 ML VIAL ONE ×2 (07:45→08:17)
[2018-12-13 07:51] LABS: ALB/GLOB RATIO 1.5 (1.1-1.8); ALBUMIN 3.9 g/dL (3.0-4.8); ALT/SGPT < 6 U/L (7-56); AST/SGOT 19 U/L (14-36); BLOOD UREA NITROGEN 20 mg/dL (7-21); CALCIUM 9.6 mg/dL (8.4-10.5); GFR NON-AFRICAN AMERICAN 60
[2018-12-13] MEDS: Arformoterol 15 mcg/2 ml Inh Sol IH SCH ×2 (08:14→20:24)
[2018-12-13] MEDS: Budesonide 0.5 mg/2 ml Inhal Susp UD IH SCH ×2 (08:14→20:24)
[2018-12-13] MEDS ORDERED: Eptifibatide 20 mg/10mL Inj IVP ONE (08:34)
--- NOTE | 2018-12-13 08:41 | PN ---
DATE: 12/13/2018 SUBJECTIVE: The patient appears very comfortable this morning. She is not short of breath at rest. PHYSICAL EXAMINATION: VITAL SIGNS: Temperature 98.1, pulse 56, respirations 18/20, blood pressure 121/82. HEENT: Normocephalic, atraumatic. NECK: No JVD. CARDIOVASCULAR: Systolic ejection murmur at the lower left sternal border. No S3 gallop. LUNGS: Clear bilaterally this morning. EXTREMITIES: Mild edema. No cyanosis. No clubbing. Calves are nontender to palpation. GI: Abdomen is soft, nontender and nondistended. Bowel sounds are positive. SKIN: No acute rash. NEUROLOGIC: Exam limited at the present time. IMPRESSION: 1. Dyspnea on exertion. 2. Chronic obstructive pulmonary disease. 3. Mild bronchitis. 4. Extensive coronary artery disease. PLAN: The patient appears quite comfortable this morning. She is not short of breath at rest. She does state to feeling much better overall. On physical exam, her lungs are now clear. In addition, there is no significant alveolar-arterial gradient. I will continue with the current nebulizer treatments and inhaled steroids for now. Input by Cardiology (Dr. Reeder) is noted. The patient is for cardiac catheterization later this morning. Clinical status of the patient is certainly improved - compared to the initial presentation. However, given the above, the future status/prognosis for this patient does remain guarded. I will discuss the above with the attending physician. Vaughn Almodovar MD [facility]
[2018-12-13] MEDS ORDERED: Sodium Chloride 0.9% 1,000 ML IV SCH (09:30)
--- NOTE | 2018-12-13 10:07 | CPOSTOP ---
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 TYPE OF ANESTHESIA: Moderate conscious sedation, total 2.5 mg of Versed and 125 mcg of fentanyl given periodically. Started at 1 mg of Versed and 50 of fentanyl. PRE-PROCEDURE DIAGNOSES: Unstable angina, abnormal stress test, aortic stenosis. PROCEDURE PERFORMED: 1. Left heart catheterization. 2. Right heart catheterization. 3. Stenting of left anterior descending artery. FINDINGS: Critical disease of LAD 95%, mid RCA totally occluded, well collateralized from LAD. FINAL DIAGNOSIS: Two-vessel disease. POST PROCEDURE PATIENT CONDITION: Stable. VASCULAR ACCESS SITE: Right femoral artery for left heart cath, right femoral vein for right heart cath. CLOSURE DEVICE: Mynx, both artery and vein. TOTAL RADIATION DOSE: 12933.20 milligray unit. TOTAL FLUORO TIME: 15.5 minutes. Brittany Reeder MD
--- NOTE | 2018-12-13 12:41 | CP.PCM.PN ---
Subjective - Date & Time of Evaluation Date of Evaluation: 12/13/18 Time of Evaluation: 12:30 - Subjective Subjective: NAD s/p cardiac cath, denies chest pain, no SOB Objective - Vital Signs/Intake and Output Vital Signs (last 24 hours): Temp Pulse Resp BP Pulse Ox 98.2 F 47 L 16 132/67 98 12/13/18 12:00 12/13/18 12:00 12/13/18 12:00 12/13/18 12:00 12/13/18 09:34 Intake and Output: 12/13/18 12/13/18 06:59 18:59 Intake Total 300 Balance 300 - Medications Medications: Current Medications Acetaminophen (Tylenol 325mg Tab) 650 mg PO Q6H PRN PRN Reason: Fever >100.4 F Amlodipine Besylate (Norvasc) 10 mg PO DAILY [facility] Last Admin: 12/13/18 10:36 Dose: 10 mg Arformoterol Tartrate (Brovana) 15 mcg IH [id number] [facility] Last Admin: 12/13/18 08:14 Dose: Not Given Aspirin (Aspirin Chewable) 81 mg PO DAILY [facility] Last Admin: 12/13/18 10:37 Dose: Not Given Atorvastatin Calcium (Lipitor) 40 mg PO DIN [facility] Last Admin: 12/12/18 18:02 Dose: 40 mg Budesonide (Pulmicort Respules) 0.5 mg IH [id number] [facility] Last Admin: 12/13/18 08:14 Dose: Not Given Carvedilol (Coreg) 12.5 mg PO BID [facility] Last Admin: 12/13/18 10:34 Dose: 12.5 mg Clopidogrel Bisulfate (Plavix) 75 mg PO Q24H [facility] Last Admin: 12/13/18 07:00 Dose: 75 mg Docusate Sodium (Colace) 100 mg PO BID [facility] Last Admin: 12/13/18 10:36 Dose: Not Given Sodium Chloride (Sodium Chloride 0.9%) 1,000 mls @ 100 mls/hr IV .Q10H [facility] Last Admin: 12/13/18 09:47 Dose: 100 mls/hr Levalbuterol HCl (Xopenex) 0.63 mg IH [id number] PRN PRN Reason: Shortness of Breath Last Admin: 12/11/18 07:21 Dose: 0.63 mg - Labs Labs: 12/13/18 06:15 12/13/18 07:00 PT 11.3 SECONDS (9.4-12.5) 12/10/18 11:55 INR 1.00 12/10/18 11:55 APTT 30.7 Seconds (26.9-38.3) 12/10/18 11:55 - Respiratory Exam Respiratory Exam: Clear to Ausculation Bilateral, NORMAL BREATHING PATTERN - Cardiovascular Exam Cardiovascular Exam: REGULAR RHYTHM, Murmur - GI/Abdominal Exam GI & Abdominal Exam: Soft, Normal Bowel Sounds - Extremities Exam Extremities Exam: Normal Inspection - Neurological Exam Neurological Exam: Alert, Awake - Skin Skin Exam: Dry, Warm Assessment and Plan (1) Coronary artery disease Status: Acute (2) CHF (congestive heart failure) Status: Acute (3) Aortic stenosis Status: Chronic (4) COPD (chronic obstructive pulmonary disease) Status: Chronic - Assessment and Plan (Free Text) Plan: montior post-cath, DC to home in am if remains stable
[2018-12-13 13:22] VITALS: RESP 20
[2018-12-13 14:10] LABS: BASO # 0.03 K/mm3 (0.0-2.0); BASO % 0.5 % (0.0-3.0); EOS # 0.2 (0.0-0.7); EOS % 3.3 % (1.5-5.0); HEMOGLOBIN 13.4 g/dL (12.0-16.0); LYMPH # 1.9 (1.2-3.4); LYMPH % 30.3 % (22.0-35.0); MEAN CORPUSCULAR HEMOGLOBIN 30.7 pg (25.0-35.0); MEAN CORPUSCULAR HGB CONC 32.3 g/dl (31.0-37.0); MEAN PLATELET VOLUME 9.9 fl (7.0-11.0); MONO # 0.5 (0.1-0.6); MONO % 7.4 % (1.0-6.0); RBC 4.37 10^6/uL (3.5-6.1); RED CELL DISTRIBUTION WIDTH 12.8 % (11.5-14.5); WHITE BLOOD COUNT 6.1 10^3/uL (4.5-11.0)
[2018-12-13 14:16] LABS: BLOOD UREA NITROGEN 18 mg/dL (7-21); CALCIUM 8.6 mg/dL (8.4-10.5); GFR NON-AFRICAN AMERICAN > 60
--- NOTE | 2018-12-13 15:48 | CARD ---
APPROVED REPORT Date of service: 12/13/2018 Procedure(s) performed: Complete Heart Catheterization PTCA with Stenting of Mid LAD with SAIMA HISTORY The patient is a 83 year-old female with a history of : most recent EF: 53%. (EF Method: RADIONUCLIDE), previous CVA , chronic lung disease, previous diagnostic cath, tobacco history() : The patient is a current smoker , previous PCI (The PCI date was ), hypertension , dyslipidemia , Hx of Multiple PTCA , last PTCA 8-10 years ago, Hx of admitted with ACS/ unstalbe angina and abnormal stress test, anterior and anterto-septal Ischemia.. INDICATION The indication(s) include : positive stress test, unstable angina , chest pain, dyspnea. CASE TECHNIQUE The patient was brought emergently to the Cardiac Catheterization Laboratory in a fasting state and was prepped and draped in a sterile manner. The right femoral groin was infiltrated with 2% Lidocaine subcutaneous anesthesia. A sheath was inserted into the right femoral artery without difficulty. Coronary angiography was performed using coronary diagnostic catheters. The left coronary system was accessed and visualized with a Diagnostic ,5 Fr JL 4 catheter. The right coronary system was accessed and visualized with a Diagnostic ,5 Fr 3DRC catheter. The left ventricle was accessed and visualized with a 5 Fr 3DRC catheter. Left ventricular/Aortic Valve gradient assessed on pullback. Left ventriculogram was performed in GUERRERO projection. A Right Heart Catheterization was performed with a 7 Fr. Breda-Heidy catheter and pressure were recorded. A 7 sheath was inserted into the right femoral vein without difficulty. Coronary angiography was performed using coronary diagnostic catheters. Cardiac outputs were obtained by the Thermal Dilution method. Pre-demployment femoral angiogram was performed . Closure device was deployed with a 6 Fr / 6 Fr MynxGrip without any complications. The patient tolerated the procedure well and there were no complications associated with the procedure. MynxGrip also applied to RF vein. Long 6 Fr 45 cm sheath used in RFA b/c tortousiy of aorta. Vessel Analysis The patient's coronary anatomy is right dominant. The left main coronary artery is a medium size vessel with diffuse calcification noted throughout this vessel and without significant stenosis. The left main bifurcates to the left anterior descending and circumflex. The left anterior descending artery is a medium size vessel with diffuse calcification noted throughout this vessel and with significant stenosis. There is a 95% stenosis in the mid segment. Proximal LAD is diffuse 30% Instent restenosis. distal LAD is Diffusely diseases 30-40% The first diagonal branch is a medium size vessel with diffuse calcification noted throughout this vessel and without significant stenosis. The circumflex artery is a large size vessel with diffuse calcification noted throughout this vessel and without significant stenosis. The first obtuse marginal branch is a small size vessel with diffuse calcification noted throughout this vessel and without significant stenosis. The second obtuse marginal branch is a medium size vessel with diffuse calcification noted throughout this vessel and with significant stenosis. There is a 100% stenosis in the ostial segment. The third obtuse marginal branch is a large size vessel with diffuse calcification noted throughout this vessel and without significant stenosis. The right coronary artery is a mediummedium size vessel with diffuse calcification noted throughout this vessel and with significant stenosis. There is a 100% stenosis in the ostial segment. RCA collateralized from LAD. Left Ventricle The left ventricle is Borderline in size with normal contractility. The left ventricular ejection fraction is estimated to be 55%. The left ventricular end diastolic pressure is 6-8 mmHg. 8 -10 mm gradient at the most Across aortc valve on pull back. Right Heart Cath Findings The Right Atrial Pressure is 2-3 mmHg. The Right Ventricular Pressure is 26/3 mmHg. The Pulmonary Artery Pressure is 26/6 mmHg. with a mean of 12-13 The Pulmonary Catheter Wedge Pressure is 3-4 mmHg. PVR 4 Wood units. The Cardiac Output is 2.30 L/min. The Cardiac index is 1.37 L/min/m2. PCI Technique Lesion Anticoagulation was achieved with Heparin and integrellin Bolluses. Percutaneous coronary intervention was performed on the mid left anterior descending artery segment. The lesion stenosis prior to intervention was 95% with JONAH 2 flow. A 6 Fr JL 4 Guide Catheter was used to engage the ostium. A Luge 182 Interventional Guidewire was used to cross the lesion. BALLOON DILATION A Balloon catheter 2.25 x 10 mm Sprinter RX was inserted and inflated up to 10.00atm for 21seconds. STENT DEPLOYMENT A drug-eluting stent 3.0 x 18 mm Resolute SAIMA was inserted and inflated up to 14.00atm for 20seconds. POST STENT DEPLOYMENT BALLOON DILATION A Balloon catheter 3.0 x 12 mm Trek RX NC was inserted and inflated up to 16.00atm for 12seconds. Final angiography reveals 0 % stenosis with JONAH 3 flow. COMMENTS Long destination sheath used for PTCA B/c of tortousty of Aorta. Conclusion Two verssel CAD, RCA [employer]ANDLE [employer]KING [employer]PER[employer]OR( chronic Total Occlusion). RCA is a small vessel ,Collateralizec from LAD. LAD mid 95% stenosis calcified vessel, proximal LAD stent has mild instent restenosis 30%,and distal LAD is diffusely diseased 30-40% stenosis. Mid LAD has patent stent in Between two stents 95% stenosis. Distal LAD amnd RCA are not good Target for CABG. Preserved LV FX, EF-55%, EDP-6-8 mmof Hg. Mild Gradient 8=10 mm across aortic valve. Mild by cath, but Moderate to Severe by Regular Echo. RHC;RA-2-3, RV-26/3, PA-27/6 with a mean of 13 mmof hG, PCW-3-4 m CO-2.23, TD, PVR- 4.0 Logan unit Very tortous abdominal and Asc aorta, requiring Destination 45 cm sheath for PTCA from RFA. Successful PTCA with SAIMA of Mid LAD. Recommendations Smoking Cessation Daily ASA with Plavix for at least one year Aggressive Medical TherapyCardiac Risk Reduction Program Aggrerssive control of LDL with a goal to Keep less than 70. F/u THI in 3-6 months to monitor . CC; Juanita Pulido/ N[place] / Rito.
[2018-12-13 19:43] VITALS: TEMP 99.3
--- NOTE | 2018-12-13 21:36 | CARD ---
APPROVED REPORT Date of service: 12/13/2018 EKG Measurement Heart [id number] [place] 232P-2 [id number] <Conclusion> Sinus bradycardia with 1st degree AV block Left axis deviation Septal infarct, age undetermined ST & T wave abnormality, consider anterolateral ischemia Abnormal ECG
[2018-12-14 07:12] LABS: BASO # 0.04 K/mm3 (0.0-2.0); BASO % 0.7 % (0.0-3.0); EOS # 0.2 (0.0-0.7); EOS % 3.6 % (1.5-5.0); HEMOGLOBIN 13.1 g/dL (12.0-16.0); LYMPH # 1.6 (1.2-3.4); LYMPH % 28.4 % (22.0-35.0); MEAN CELL VOLUME 93.9 fl (80.0-105.0); MEAN CORPUSCULAR HEMOGLOBIN 30.5 pg (25.0-35.0); MEAN CORPUSCULAR HGB CONC 32.5 g/dl (31.0-37.0); MEAN PLATELET VOLUME 9.9 fl (7.0-11.0); MONO # 0.3 (0.1-0.6); RBC 4.29 10^6/uL (3.5-6.1); RED CELL DISTRIBUTION WIDTH 12.8 % (11.5-14.5); WHITE BLOOD COUNT 5.5 10^3/uL (4.5-11.0)
[2018-12-14 07:42] LABS: ALB/GLOB RATIO 1.4 (1.1-1.8); ALBUMIN 3.6 g/dL (3.0-4.8); ALT/SGPT 8 U/L (7-56); AST/SGOT 39 U/L (14-36); BLOOD UREA NITROGEN 13 mg/dL (7-21); CALCIUM 8.8 mg/dL (8.4-10.5); GFR NON-AFRICAN AMERICAN 60
[2018-12-14] MEDS: Arformoterol 15 mcg/2 ml Inh Sol IH SCH (07:50)
[2018-12-14] MEDS: Budesonide 0.5 mg/2 ml Inhal Susp UD IH SCH (07:50)
--- NOTE | 2018-12-14 09:14 | CARD ---
APPROVED REPORT Date of service: 12/14/2018 EKG Measurement Heart [id number] 222P-20 [id number] <Conclusion> Sinus rhythm with 1st degree AV block Left axis deviation Left ventricular hypertrophy with repolarization abnormality Inferior infarct, age undetermined Anteroseptal infarct, age undetermined Abnormal ECG
--- NOTE | 2018-12-14 09:53 | PN ---
DATE: 12/14/2018 PULMONARY NOTE SUBJECTIVE: The patient appears very comfortable this morning. She is not short of breath at rest. PHYSICAL EXAMINATION: VITAL SIGNS: Last temperature recorded is 99.3, pulse 60, respirations 18, blood pressure 141/71 and oxygen saturation on room air is 98%. HEENT: Normocephalic and atraumatic. No JVD. CARDIOVASCULAR: Systolic ejection murmur at the lower left sternal border. No S3 gallop. LUNGS: Clear bilaterally. EXTREMITIES: Mild edema. No cyanosis. No clubbing. Calves are nontender to palpation. GI: Abdomen is soft, nontender and nondistended. Bowel sounds are positive. SKIN: No acute rash. NEUROLOGIC: Exam limited at the present time. IMPRESSION: 1. Dyspnea on exertion. 2. Chronic obstructive pulmonary disease. 3. Mild bronchitis. 4. Extensive coronary artery disease. PLAN: The patient appears very comfortable this morning. She is not short of breath at rest. She does state to feeling much, much better overall. On physical exam, her lungs remain clear. In addition, oxygen saturation on room air is now 98%. I will continue the current nebulizer treatments and inhaled steroids for now. Input by Cardiology is noted. I did discuss the case with Dr. Reeder yesterday. The patient is status post left anterior descending artery stent. Clinical status of the patient appears significantly improved - compared to the initial presentation. However, given the above, the future status/prognosis for this patient does remain somewhat guarded. The patient is for discharge in the very near future. I will discuss the above with the attending physician. The patient does have a prescription for Breo Ellipta - to use as an outpatient. She will also follow with me in the office. Vaughn Almodovar MD MTDSosa
[2018-12-14 10:31] VITALS: BP 111/62; PULSE 67
--- NOTE | 2018-12-14 14:42 | PN ---
DATE: 12/14/2018 REASON FOR CONSULTATION AND FOLLOWUP: Unstable angina status post cardiac catheterization, status post PTCA of LAD. The patient denies any chest pain, shortness of breath, any palpitations. The patient is not in any apparent distress. PHYSICAL EXAMINATION: VITAL SIGNS: Temperature is afebrile. Heart rate 60, blood pressure 141/71. HEENT: PERRLA, intact. NECK: Supple. No carotid bruit. No thyromegaly. CHEST: Clear to auscultation. HEART: S1 and S2 regular. ABDOMEN: Soft. EXTREMITIES: Clubbing and cyanosis negative. LABORATORY DATA: P2Yt2 level 91, which means the patient is sensitive to Plavix. WBC 5.2, hemoglobin 13.2, hematocrit 40.3, platelet count of 145. Chemistry shows sodium 137, potassium 4.4., chloride 107, carbon dioxide 27, anion gap of 7, BUN 13, creatinine 0.9. IMPRESSION: An 83-year-old female with a past medical history significant for coronary artery disease, admitted with unstable angina, abnormal stress test, underwent cardiac catheterization and stent of mid-left anterior descending artery. The right coronary artery is totally occluded. Moderate aortic stenosis. Peak gradient 10 mmHg. Mild to moderate by cath, but moderate to severe aortic stenosis by echo. The patient is sensitive to Plavix. PRU level is 91. RECOMMENDATION: Continue aspirin. Continue Plavix. Bilateral carotid Duplex shows 29% stenosis. Continue Coreg. Continue treatment for COPD. Continue amlodipine. We will do the in 36 months to assess the progression of aortic stenosis. Continue medical treatment. Thank you Dr. Moore for providing us the opportunity in taking care of the patient Matilde Leyva. Brittany Reeder MD cc: Dr. Moore
--- NOTE | 2018-12-14 20:44 | DS ---
HISTORY OF PRESENT ILLNESS: The patient is an 83-year-old female admitted through the emergency department on 12/10/2018, with increasing dyspnea on minimal exertion. The patient was admitted to the Telemetry Unit, was seen in consultation by Dr. Reeder and underwent cardiac catheterization on 12/13/2018 with 95% LAD lesion which was stented. The patient is medically stable for discharge today. PHYSICAL EXAMINATION: VITAL SIGNS: Blood pressure 111/62, pulse 67, the patient is afebrile. LUNGS: Clear. HEART: Regular rate and rhythm. ABDOMEN: Soft and nontender. Bowel sounds are normoactive. EXTREMITIES: Without cyanosis, clubbing or edema. NEUROLOGIC: The patient is awake and oriented x3 without focal sensory or motor deficits. SKIN: Warm and dry. IMPRESSION: 1. Coronary artery disease status post stent placement. 2. Aortic stenosis. 3. Hypertension, hypertensive cardiovascular disease and mild congestive heart failure. 4. Chronic obstructive pulmonary disease. 5. Hypercholesterolemia. 6. Degenerative joint disease. 8. Low TSH, rule out hyperthyroidism. DISCHARGE PLAN: The patient will be discharged to home today on the following medications; Ecotrin 81 mg daily, Plavix 75 mg daily, amlodipine 10 mg daily, Lipitor 40 mg daily, carvedilol 12.5 mg twice daily as well as Breo which was prescribed in consultation by Pulmonary, Dr. Almodovar. DIET: The patient will be maintained on a heart-healthy diet. ACTIVITIES: Ad libitum. FOLLOWUP: The patient will be followed up in the office within the next 1-2 weeks. KATTY Goddard MD
== END 2018-12-14 13:00 | disposition home or self-care (01) | DRG 247 ==
LOC: ED 11:15 → ERH 14:18 → 2RSO 21:26
PROVIDERS: ADMIT Internal Medicine; ATTEND Internal Medicine
PROC: 3E0F7GC Introduction of Other Therapeutic Substance into Respiratory Tract, Via Natural or Artificial Opening (ICD-10-PCS; 2018-12-11)
PROC: 027034Z Dilation of Coronary Artery, One Artery with Drug-eluting Intraluminal Device, Percutaneous Approach (ICD-10-PCS; principal; 2018-12-13)
PROC: 4A023N8 Measurement of Cardiac Sampling and Pressure, Bilateral, Percutaneous Approach (ICD-10-PCS; 2018-12-13)
PROC: B2111ZZ Fluoroscopy of Multiple Coronary Arteries using Low Osmolar Contrast (ICD-10-PCS; 2018-12-13)
PROC: B2151ZZ Fluoroscopy of Left Heart using Low Osmolar Contrast (ICD-10-PCS; 2018-12-13)
PROC: 3E033PZ Introduction of Platelet Inhibitor into Peripheral Vein, Percutaneous Approach (ICD-10-PCS; 2018-12-13)
DX: I25.110 Atherosclerotic heart disease of native coronary artery with unstable angina pectoris (principal); T82.855A Stenosis of coronary artery stent, initial encounter; I11.0 Hypertensive heart disease with heart failure; J44.9 Chronic obstructive pulmonary disease, unspecified; I50.9 Heart failure, unspecified; F17.210 Nicotine dependence, cigarettes, uncomplicated; E78.5 Hyperlipidemia, unspecified; I35.0 Nonrheumatic aortic (valve) stenosis; I25.82 Chronic total occlusion of coronary artery; E78.00 Pure hypercholesterolemia, unspecified; M19.90 Unspecified osteoarthritis, unspecified site; Z79.02 Long term (current) use of antithrombotics/antiplatelets; Z86.73 Personal history of transient ischemic attack (TIA), and cerebral infarction without residual deficits; Z79.82 Long term (current) use of aspirin; Z95.5 Presence of coronary angioplasty implant and graft; Y83.1 Surgical operation with implant of artificial internal device as the cause of abnormal reaction of the patient, or of later complication, without mention of misadventure at the time of the procedure